=== PATIENT | female | born 2000 | race Caucasian/White ===

== ENCOUNTER 2024-03-10 10:45 | Emergency (ER) | payer SELFPAY ==
[~2024-03-10] VITALS: Ht 154.9 cm; Wt 41.5 kg
[2024-03-10] MEDS ORDERED: ZITHROMAX250 MG PO (11:54)
[2024-03-10] MEDS ORDERED: BENZONATATE200 MG PO (11:54)
[2024-03-10] MEDS ORDERED: PROVENTIL HFA6.7 GM INH (11:54)
[2024-03-10] MEDS ORDERED: AMOXICILLIN875 MG PO (11:54)
[2024-03-10 12:45] VITALS: O2SAT 99
== END 2024-03-10 12:45 | disposition home or self-care (01) ==
LOC: FSED 10:55
DX: R05.9 Cough, unspecified (principal); J20.9 Acute bronchitis, unspecified; J45.909 Unspecified asthma, uncomplicated; Z11.52 Encounter for screening for COVID-19
CPT/HCPCS: 0223U; 83518 ×2; 87400; 99283